=== PATIENT | male | born 1970 | race Asian ===

== ENCOUNTER 2017-08-31 20:41 | Emergency (ER) | payer OTHER ==
[~2017-08-31] VITALS: Ht 157.5 cm; Wt 92.1 kg
[2017-08-31] MEDS ORDERED: GABA300C2 PO (21:13)
[2017-08-31] MEDS ORDERED: OMEP20CA PO (21:13)
[2017-08-31] MEDS ORDERED: LIPITOR40 MG PO (21:14)
[2017-08-31] MEDS ORDERED: METF100038 OR (21:14)
[2017-08-31] MEDS ORDERED: NEURONTIN800 MG PO (21:14)
[2017-08-31] MEDS ORDERED: INSUINJ47 SC ×2 (21:15→21:16)
[2017-08-31 23:51] LABS: PLATELET COUNT 234 K/uL (142-355)
[2017-08-31 23:56] LABS: POTASSIUM 3.9 mmol/L (3.6-5.2); SODIUM 125 mmol/L (136-145)
[2017-09-01 00:48] VITALS: BP 136/72; TEMP 98.5
== END 2017-09-01 00:52 | disposition home or self-care (01) ==
LOC: ED 20:41
PROVIDERS: Specialist
DX: E11.43 Type 2 diabetes mellitus with diabetic autonomic (poly)neuropathy (principal); K31.84 Gastroparesis; R13.19 Other dysphagia
CPT/HCPCS: 36415; 80048; 82550; 82553; 84484; 85027; 93005; 96374; 99284; J1815

== ENCOUNTER 2017-09-19 21:08 | Observation (INO) | payer OTHER ==
[~2017-09-19] VITALS: Ht 157.5 cm; Wt 77.1 kg
[~2017-09-19 21:08] MED LIST: GABA300C2 PO; INSUINJ47 SC; LIPITOR40 MG PO; METF100038 OR; NEURONTIN800 MG PO; OMEP20CA PO
[2017-09-19] MEDS ORDERED: NITROSTAT0.4 MG SL (21:19)
[2017-09-19 21:21] VITALS: BP 120/85; TEMP 97.7
[2017-09-19 21:54] LABS: PLATELET COUNT 213 K/uL (142-355)
[2017-09-19 22:04] LABS: POTASSIUM 3.8 mmol/L (3.6-5.2)
[2017-09-19 22:22] LABS: PARTIAL THROMBOPLASTIN TIME 24.9 SECONDS (24.5-33.6)
[2017-09-19 23:39] VITALS: BP 142/87; TEMP 99.2; Ht 157.5 cm; Wt 77.1 kg
[2017-09-20] VITALS: BP 142/87; TEMP 99.2
[2017-09-20 04:00] VITALS: BP 168/82; TEMP 98.2
[2017-09-20 08:00] VITALS: BP 176/69; TEMP 98.3
[2017-09-20 12:00] VITALS: BP 117/75; TEMP 98
== END 2017-09-20 15:25 | disposition home or self-care (01) ==
LOC: ED 21:08 → MED/SURG 22:38
DX: R07.89 Other chest pain (principal); E11.9 Type 2 diabetes mellitus without complications; R13.19 Other dysphagia; R11.2 Nausea with vomiting, unspecified
CPT/HCPCS: 36415; 80053; 82150; 82550; 83690; 84484; 85027; 85610; 85730; 87081; 87804; 87880; 93005; 94760; 96365; 96366; 96372; 96374; 96375; 99220; 99284; G0378; J1650; J3490

== ENCOUNTER 2017-09-29 18:07 | Outpatient (CLI) | payer OTHER ==
[~2017-09-29 18:07] MED LIST changes: +NITROSTAT0.4 MG SL
[2017-09-29] MEDS ORDERED: METF100038 OR (19:17)
[2017-09-29] MEDS ORDERED: GABA300C2 PO ×2 (19:18→19:19)
[2017-09-29] MEDS ORDERED: INSUINJ47 SC ×2 (19:20→19:23)
== END 2017-09-29 18:10 | disposition short-term general hospital (02) ==
LOC: AMB 18:07
DX: R41.82 Altered mental status, unspecified (principal)
CPT/HCPCS: A0425; A0427

== ENCOUNTER 2017-09-29 18:14 | Emergency (ER) | payer OTHER ==
[~2017-09-29] VITALS: Ht 157.5 cm; Wt 77.1 kg
[2017-09-29 18:53] LABS: PLATELET COUNT 176 K/uL (142-355)
[2017-09-29 19:02] LABS: POTASSIUM 3.6 mmol/L (3.6-5.2)
[2017-09-29 19:10] LABS: PARTIAL THROMBOPLASTIN TIME 25.1 SECONDS (24.5-33.6)
[2017-09-29] MEDS ORDERED: METF100038 OR (19:17)
[2017-09-29] MEDS ORDERED: GABA300C2 PO ×2 (19:18→19:19)
[2017-09-29] MEDS ORDERED: INSUINJ47 SC ×2 (19:20→19:23)
[2017-09-29 21:52] VITALS: BP 113/86; TEMP 97.3
== END 2017-09-29 21:57 | disposition short-term general hospital (02) ==
LOC: ED 18:14
DX: I21.4 Non-ST elevation (NSTEMI) myocardial infarction (principal); E11.9 Type 2 diabetes mellitus without complications
CPT/HCPCS: 36415; 80053; 80307; 81000; 82550; 84484; 85027; 85610; 85730; 93005; 96372; 99284; J1650

== ENCOUNTER 2017-09-29 22:15 | Outpatient (CLI) | payer OTHER | END 2017-09-29 23:55 | disposition short-term general hospital (02) | LOC: AMB 22:15 | DX: I21.4 Non-ST elevation (NSTEMI) myocardial infarction (principal); E11.9 Type 2 diabetes mellitus without complications | CPT/HCPCS: A0425; A0427 ==

== ENCOUNTER 2017-11-19 16:18 | Emergency (ER) | payer OTHER ==
[~2017-11-19] VITALS: Ht 157.5 cm; Wt 80.3 kg
[2017-11-19 17:07] LABS: PLATELET COUNT 291 K/uL (142-355)
[2017-11-19 17:15] LABS: POTASSIUM 4.3 mmol/L (3.6-5.2)
[2017-11-19 20:50] VITALS: BP 158/78; TEMP 97.6
== END 2017-11-19 21:12 | disposition home or self-care (01) ==
LOC: ED 16:18
DX: K29.60 Other gastritis without bleeding (principal)
CPT/HCPCS: 80053; 82150; 83690; 83735; 85027; 96361; 96374; 99284; J2405; Q9963

== ENCOUNTER 2017-11-21 12:14 | Outpatient (CLI) | payer OTHER ==
[2017-11-21] MEDS ORDERED: METFORMIN ER1000 MG PO (18:20)
[2017-11-21] MEDS ORDERED: NOVOLOG MX SC ×2 (18:22→18:24)
[2017-11-21] MEDS ORDERED: ELIQUIS5 MG PO (18:25)
== END 2017-11-21 12:17 | disposition short-term general hospital (02) ==
LOC: AMB 12:14
DX: R55 Syncope and collapse (principal); E11.65 Type 2 diabetes mellitus with hyperglycemia
CPT/HCPCS: A0425; A0427

== ENCOUNTER 2017-11-21 12:17 | Inpatient (IN) | payer OTHER ==
[2017-11-21] VITALS (11 sets, daily range): BP systolic 104–158; BP diastolic 65–89; TEMP 97.3–98.6
[~2017-11-21] VITALS: Ht 157.5 cm; Wt 75.9 kg
[2017-11-21 13:15] LABS: PLATELET COUNT 238 K/uL (142-355)
[2017-11-21 13:20] LABS: POTASSIUM 4.9 mmol/L (3.6-5.2)
[2017-11-21] MEDS ORDERED: METFORMIN ER1000 MG PO (18:20)
[2017-11-21] MEDS ORDERED: NOVOLOG MX SC ×2 (18:22→18:24)
[2017-11-21] MEDS ORDERED: ELIQUIS5 MG PO (18:25)
[2017-11-22] VITALS: BP 130/70; BP 130/71; TEMP 98.3
[2017-11-22 03:02] VITALS: BP 144/69; TEMP 98.2; Ht 157.5 cm; Wt 75.9 kg
[2017-11-22 03:53] VITALS: BP 123/57; TEMP 98.9
[2017-11-22 08:00] VITALS: BP 115/63; TEMP 98.5
[2017-11-22 08:55] LABS: PLATELET COUNT 202 K/uL (142-355)
[2017-11-22 09:03] LABS: POTASSIUM 3.5 mmol/L (3.6-5.2)
[2017-11-22 12:00] VITALS: BP 139/80; TEMP 98.7
== END 2017-11-22 14:58 | disposition home or self-care (01) | DRG 640 ==
LOC: ED 12:17 → MED/SURG 15:00
PROVIDERS: Emergency Medicine; ADMIT Family Medicine
DX: E86.0 Dehydration (principal); E11.00 Type 2 diabetes mellitus with hyperosmolarity without nonketotic hyperglycemic-hyperosmolar coma (NKHHC); R11.2 Nausea with vomiting, unspecified; R55 Syncope and collapse; K21.9 Gastro-esophageal reflux disease without esophagitis; I10 Essential (primary) hypertension; D64.89 Other specified anemias; E88.09 Other disorders of plasma-protein metabolism, not elsewhere classified
CPT/HCPCS: 36415; 36591; 36600; 80053; 80307; 81000; 82607; 82728; 82805; 82948; 83540; 83550; 85027; 96361; 96365; 96372; 96374; 96376; 99284; J1815; J2405

== ENCOUNTER 2018-10-30 15:28 | Outpatient (CLI) | payer OTHER ==
[~2018-10-30 15:28] MED LIST changes: +ELIQUIS5 MG PO; +METFORMIN ER1000 MG PO; +NOVOLOG MX SC
== END 2018-10-30 23:19 | disposition home or self-care (01) ==
LOC: LABW 15:28
DX: B35.1 Tinea unguium (principal)
CPT/HCPCS: 36415; 84450; 84460

== ENCOUNTER 2018-12-01 15:09 | Outpatient (CLI) | payer OTHER | END 2018-12-01 15:11 | disposition short-term general hospital (02) | LOC: AMB 15:09 | DX: R55 Syncope and collapse (principal); R41.82 Altered mental status, unspecified | CPT/HCPCS: A0425; A0427 ==

== ENCOUNTER 2018-12-01 15:19 | Emergency (ER) | payer OTHER ==
[~2018-12-01] VITALS: Ht 157.5 cm; Wt 68.0 kg
[2018-12-01 15:55] LABS: PLATELET COUNT 155 K/uL (142-355)
[2018-12-01 16:11] LABS: POTASSIUM 3.8 mmol/L (3.6-5.2); SODIUM 129 mmol/L (136-145)
[2018-12-01 16:23] LABS: PARTIAL THROMBOPLASTIN TIME 23.2 SECONDS (24.5-33.6)
[2018-12-01 19:40] VITALS: BP 167/81; TEMP 98.2
== END 2018-12-01 19:40 | disposition home or self-care (01) ==
LOC: ED 15:19
PROVIDERS: Family Medicine
DX: R55 Syncope and collapse (principal); R51 Headache; E87.1 Hypo-osmolality and hyponatremia; E11.65 Type 2 diabetes mellitus with hyperglycemia; Z79.4 Long term (current) use of insulin; R07.89 Other chest pain; R00.1 Bradycardia, unspecified
CPT/HCPCS: 80053; 80307; 81000; 82550; 82962; 84484; 85027; 85610; 85730; 93005; 96360; 96372; 99284; J1815

== ENCOUNTER 2018-12-02 13:38 | Outpatient (CLI) | payer OTHER ==
[2018-12-02 14:04] LABS: PLATELET COUNT 173 K/uL (142-355)
[2018-12-02 14:14] LABS: POTASSIUM 3.6 mmol/L (3.6-5.2); SODIUM 135 mmol/L (136-145)
== END 2018-12-02 19:55 | disposition home or self-care (01) ==
LOC: LABW 13:38
PROVIDERS: Family Medicine
DX: E87.1 Hypo-osmolality and hyponatremia (principal); E13.65 Other specified diabetes mellitus with hyperglycemia; G40.409 Other generalized epilepsy and epileptic syndromes, not intractable, without status epilepticus
CPT/HCPCS: 36415; 80053; 82550; 83036; 84484; 85027

== ENCOUNTER 2019-01-15 11:13 | Outpatient (CLI) | payer OTHER | END 2019-01-15 23:46 | disposition home or self-care (01) | LOC: LABW 11:13 | DX: B35.1 Tinea unguium (principal) | CPT/HCPCS: 36415; 84450; 84460 ==

== ENCOUNTER 2020-02-27 14:02 | Emergency (ER) | payer OTHER ==
[~2020-02-27] VITALS: Ht 157.5 cm; Wt 68.0 kg
[2020-02-27 15:00] LABS: PLATELET COUNT 173 K/uL (142-355)
[2020-02-27 15:07] LABS: POTASSIUM 3.7 mmol/L (3.6-5.2); SODIUM 125 mmol/L (136-145)
[2020-02-27 15:24] LABS: PARTIAL THROMBOPLASTIN TIME 22.7 SECONDS (24.5-33.6)
[2020-02-27 21:35] VITALS: BP 157/63; TEMP 98.5
== END 2020-02-27 21:35 | disposition short-term general hospital (02) ==
LOC: ED 14:02
PROVIDERS: Family Medicine
DX: R00.1 Bradycardia, unspecified (principal); R11.2 Nausea with vomiting, unspecified; E87.1 Hypo-osmolality and hyponatremia; E11.65 Type 2 diabetes mellitus with hyperglycemia; Z79.4 Long term (current) use of insulin; Z79.84 Long term (current) use of oral hypoglycemic drugs
CPT/HCPCS: 36415; 80053; 82550; 82962; 83880; 84484; 85027; 85610; 85730; 93005; 96360; 96361; 96375; 96376; 99284; J1815; J2405

== ENCOUNTER 2020-03-28 12:10 | Emergency (ER) | payer OTHER ==
[~2020-03-28] VITALS: Ht 157.5 cm; Wt 68.0 kg
[2020-03-28 12:35] VITALS: TEMP 98.6
[2020-03-28 13:11] LABS: PLATELET COUNT 141 K/uL (142-355)
[2020-03-28 13:21] LABS: POTASSIUM 3.9 mmol/L (3.6-5.2)
[2020-03-28 17:20] VITALS: BP 189/82
== END 2020-03-28 17:20 | disposition home or self-care (01) ==
LOC: ED 12:10
PROVIDERS: Emergency Medicine Emergency Medical Services
DX: R11.2 Nausea with vomiting, unspecified (principal); I10 Essential (primary) hypertension; Z98.890 Other specified postprocedural states; F17.290 Nicotine dependence, other tobacco product, uncomplicated
CPT/HCPCS: 36415; 80053; 83690; 85027; 93005; 96360; 96372; 96375; 99284; J1815; J2270; J2405; J3490

== ENCOUNTER 2020-03-30 10:45 | Observation (INO) | payer OTHER ==
[~2020-03-30] VITALS: Ht 160 cm; Wt 57.8 kg
[2020-03-30 12:00] VITALS: BP 172/94; TEMP 98.6
[2020-03-30 12:22] LABS: PLATELET COUNT 147 K/uL (142-355)
[2020-03-30 12:36] VITALS: BP 172/94; TEMP 98.6; Ht 160 cm; Wt 57.8 kg
[2020-03-30 16:00] VITALS: BP 201/96; TEMP 98.2
[2020-03-30 20:00] VITALS: BP 92/57; TEMP 98.7
[2020-03-30] MEDS ORDERED: AMLODIPINE BESYLATE PO (20:22)
[2020-03-30] MEDS ORDERED: LANTUS100 UNIT/M SC (20:23)
[2020-03-30] MEDS ORDERED: ONDA4TAB3 PO (20:24)
[2020-03-30] MEDS ORDERED: COZAAR25 MG PO (20:24)
[2020-03-30] MEDS ORDERED: CARAFATE1 GM PO ×2 (20:25→20:26)
[2020-03-30] MEDS ORDERED: PANTOPRAZOLE 40MG TA PO (20:25)
[2020-03-30] MEDS ORDERED: ROWEEPRA500 MG PO (20:27)
[2020-03-31 00:15] VITALS: BP 107/61; TEMP 98.4
[2020-03-31 04:00] VITALS: BP 122/87; TEMP 97.8
[2020-03-31 05:01] LABS: PLATELET COUNT 132 K/uL (142-355)
[2020-03-31 05:42] LABS: POTASSIUM 3.7 mmol/L (3.6-5.2)
[2020-03-31 08:00] VITALS: BP 136/71; TEMP 98.3
[2020-03-31 12:00] VITALS: BP 137/74; TEMP 98.3
[2020-03-31 16:00] VITALS: BP 149/69; TEMP 98
== END 2020-03-31 20:19 | disposition home or self-care (01) ==
LOC: MED/SURG 10:45
PROVIDERS: ADMIT Family Medicine
DX: E13.10 Other specified diabetes mellitus with ketoacidosis without coma (principal); R11.2 Nausea with vomiting, unspecified; D50.9 Iron deficiency anemia, unspecified; E78.5 Hyperlipidemia, unspecified; I10 Essential (primary) hypertension; Z86.718 Personal history of other venous thrombosis and embolism; E83.51 Hypocalcemia; W08.XXXA Fall from other furniture, initial encounter; Y92.238 Other place in hospital as the place of occurrence of the external cause
CPT/HCPCS: 36415; 36600; 80053; 81000; 81002; 82805; 83735; 84100; 85027; 87635; 99220; G0378; G0379; J1815; J2550; J2765; J3475; U0003

== ENCOUNTER 2020-04-02 13:53 | Emergency (ER) | payer OTHER ==
[~2020-04-02] VITALS: Ht 160 cm; Wt 57.6 kg
[~2020-04-02 13:53] MED LIST changes: +AMLODIPINE BESYLATE PO; +CARAFATE1 GM PO; +COZAAR25 MG PO; +LANTUS100 UNIT/M SC; +ONDA4TAB3 PO; +PANTOPRAZOLE 40MG TA PO; +ROWEEPRA500 MG PO
[2020-04-02 14:44] VITALS: BP 155/94; TEMP 99.6
[2020-04-02 16:14] LABS: POTASSIUM 4.5 mmol/L (3.6-5.2)
[2020-04-02 16:15] LABS: PLATELET COUNT 158 K/uL (142-355)
== END 2020-04-02 20:01 | disposition home or self-care (01) ==
LOC: ED 13:53
PROVIDERS: Family Medicine
DX: K52.89 Other specified noninfective gastroenteritis and colitis (principal); E86.0 Dehydration; K59.09 Other constipation; R11.2 Nausea with vomiting, unspecified; Z98.890 Other specified postprocedural states
CPT/HCPCS: 80053; 82150; 83690; 85027; 96360; 96361; 96365; 96374; 99284; J1885; J3490

== ENCOUNTER 2020-06-11 13:48 | Outpatient (CLI) | payer OTHER | END 2020-06-11 20:08 | disposition home or self-care (01) | LOC: RESP 13:48 | PROVIDERS: ATTEND Specialist | DX: G40.909 Epilepsy, unspecified, not intractable, without status epilepticus (principal) ==

== ENCOUNTER 2020-09-26 13:05 | Emergency (ER) | payer OTHER ==
[~2020-09-26] VITALS: Ht 233.7 cm; Wt 65.8 kg
[2020-09-26 13:51] LABS: PLATELET COUNT 166 K/uL (142-355)
[2020-09-26 14:00] LABS: POTASSIUM 3.9 mmol/L (3.6-5.2)
[2020-09-26 14:13] LABS: PARTIAL THROMBOPLASTIN TIME 24.3 SECONDS (24.5-33.6)
[2020-09-26 16:30] VITALS: TEMP 98.4
[2020-09-26 17:15] VITALS: BP 167/77
== END 2020-09-26 17:20 | disposition short-term general hospital (02) ==
LOC: ED 13:05
PROVIDERS: Hospitalist
DX: K85.10 Biliary acute pancreatitis without necrosis or infection (principal); R11.2 Nausea with vomiting, unspecified; R10.84 Generalized abdominal pain; E11.9 Type 2 diabetes mellitus without complications; Z11.52 Encounter for screening for COVID-19
CPT/HCPCS: 80053; 80320; 81000; 81002; 82150; 83690; 84484; 85027; 85610; 85730; 87635; 93005; 96360; 96361; 96365; 96375; 99284; J1170; J1885; J2405; J2543; Q9963; U0003

== ENCOUNTER 2020-10-02 18:02 | Emergency (ER) | payer OTHER ==
[~2020-10-02] VITALS: Ht 233.7 cm; Wt 65.8 kg
[2020-10-02 18:32] LABS: PLATELET COUNT 188 K/uL (142-355)
[2020-10-02 18:54] LABS: POTASSIUM 3.8 mmol/L (3.6-5.2)
[2020-10-02 19:38] VITALS: BP 180/83; TEMP 98.8
== END 2020-10-02 19:38 | disposition home or self-care (01) ==
LOC: ED 18:02
PROVIDERS: Hospitalist
DX: E11.43 Type 2 diabetes mellitus with diabetic autonomic (poly)neuropathy (principal); K31.84 Gastroparesis; R11.2 Nausea with vomiting, unspecified; K20.80 Other esophagitis without bleeding
CPT/HCPCS: 36415; 80053; 81000; 82150; 83690; 85027; 96360; 96374; 96375; 99284; J2405; J3490

== ENCOUNTER 2020-10-06 15:51 | Emergency (ER) | payer OTHER ==
[~2020-10-06] VITALS: Ht 160 cm; Wt 65.8 kg
[2020-10-06 15:51] VITALS: TEMP 97.5
[2020-10-06 16:12] LABS: PLATELET COUNT 163 K/uL (142-355)
[2020-10-06 18:00] VITALS: BP 124/71
== END 2020-10-06 18:06 | disposition home or self-care (01) ==
LOC: ED 15:51
PROVIDERS: Family Medicine
DX: R55 Syncope and collapse (principal); M54.5 Low back pain; M79.18 Myalgia, other site; W18.39XA Other fall on same level, initial encounter; Y92.531 Health care provider office as the place of occurrence of the external cause
CPT/HCPCS: 80053; 80320; 85027; 93005; 96360; 96375; 99284; J1885

== ENCOUNTER 2021-02-14 18:21 | Observation (INO) | payer OTHER ==
[~2021-02-14] VITALS: Ht 157.5 cm; Wt 55.4 kg
[2021-02-14 18:28] VITALS: BP 115/100; TEMP 99
[2021-02-14 20:33] LABS: PLATELET COUNT 188 K/uL (142-355)
[2021-02-14 20:44] LABS: PARTIAL THROMBOPLASTIN TIME 24.7 SECONDS (24.5-33.6)
[2021-02-14 20:53] LABS: POTASSIUM 4.3 mmol/L (3.6-5.2)
[2021-02-15] VITALS (7 sets, daily range): BP systolic 102–145; BP diastolic 58–76; TEMP 97–98.3; Ht 157.5 cm; Wt 55.4 kg
[2021-02-15 09:25] LABS: PLATELET COUNT 162 K/uL (142-355)
[2021-02-15 17:34] LABS: PLATELET COUNT 166 K/uL (142-355)
[2021-02-16 00:20] VITALS: BP 124/76; TEMP 98.4
[2021-02-16 04:00] VITALS: BP 124/72; TEMP 98.2
[2021-02-16 06:10] LABS: PLATELET COUNT 136 K/uL (142-355)
[2021-02-16 08:00] VITALS: BP 149/72; TEMP 98.5
[2021-02-16 12:00] VITALS: BP 116/60; TEMP 98.4
== END 2021-02-16 11:45 | disposition home or self-care (01) ==
LOC: ED 18:21 → MED/SURG 02-15 17:20
PROVIDERS: Emergency Medicine Emergency Medical Services; Hospitalist; ADMIT Family Medicine; ATTEND Family Medicine
DX: K92.2 Gastrointestinal hemorrhage, unspecified (principal); E11.42 Type 2 diabetes mellitus with diabetic polyneuropathy; I73.89 Other specified peripheral vascular diseases
CPT/HCPCS: 36415; 80053; 82271; 83690; 83986; 85027; 85610; 85730; 87635; 96360; 96361; 96365; 96366; 96368; 99220; 99284; G0378; J2270; J2405; J3490; U0003

== ENCOUNTER 2021-04-24 13:04 | Emergency (ER) | payer OTHER ==
[~2021-04-24] VITALS: Ht 157.5 cm; Wt 55.3 kg
[2021-04-24 13:14] VITALS: TEMP 97.6
[2021-04-24 14:40] LABS: PLATELET COUNT 199 K/uL (142-355)
[2021-04-24 14:50] LABS: POTASSIUM 4.3 mmol/L (3.6-5.2)
[2021-04-24 17:40] LABS: POTASSIUM 3.9 mmol/L (3.6-5.2)
[2021-04-24 18:45] VITALS: BP 111/68
== END 2021-04-24 18:47 | disposition home or self-care (01) ==
LOC: ED 13:04
PROVIDERS: Emergency Medicine Emergency Medical Services
DX: K52.9 Noninfective gastroenteritis and colitis, unspecified (principal); E86.0 Dehydration
CPT/HCPCS: 80048; 80053; 81000; 83735; 85027; 96361; 96365; 96374; 96375; 99284; J1815; J2405; J3490

== ENCOUNTER 2021-05-01 07:43 | Emergency (ER) | payer OTHER ==
[~2021-05-01] VITALS: Ht 157.5 cm; Wt 67.6 kg
[2021-05-01 07:43] VITALS: TEMP 98.9
[2021-05-01 08:48] LABS: PLATELET COUNT 309 K/uL (142-355)
[2021-05-01 10:18] VITALS: BP 99/65
== END 2021-05-01 10:28 | disposition still patient (30) ==
LOC: ED 07:43
PROVIDERS: Emergency Medicine
DX: R10.13 Epigastric pain (principal); I25.119 Atherosclerotic heart disease of native coronary artery with unspecified angina pectoris; K85.90 Acute pancreatitis without necrosis or infection, unspecified; Z20.822 Contact with and (suspected) exposure to COVID-19
CPT/HCPCS: 36600; 80053; 80320; 82150; 82805; 83690; 84484; 85027; 87635; 93005; 96360; 96375; 99284; J1170; J1815; J2405; Q9963; U0003

== ENCOUNTER 2021-06-10 13:59 | Emergency (ER) | payer OTHER ==
[~2021-06-10] VITALS: Ht 157.5 cm; Wt 63.0 kg
[2021-06-10 14:53] LABS: PLATELET COUNT 220 K/uL (142-355)
[2021-06-10 15:03] LABS: POTASSIUM 4.2 mmol/L (3.6-5.2)
[2021-06-10 20:00] VITALS: BP 109/80; TEMP 98.1
== END 2021-06-10 20:00 | disposition home or self-care (01) ==
LOC: ED 13:59
PROVIDERS: Emergency Medicine
DX: K52.89 Other specified noninfective gastroenteritis and colitis (principal); K92.1 Melena; E86.0 Dehydration; R73.9 Hyperglycemia, unspecified
CPT/HCPCS: 80053; 82272; 85027; 96360; 96361; 99284

== ENCOUNTER 2021-06-14 19:34 | Emergency (ER) | payer OTHER ==
[~2021-06-14] VITALS: Ht 157.5 cm; Wt 62.1 kg
[2021-06-14 20:24] LABS: PLATELET COUNT 218 K/uL (142-355)
[2021-06-14 20:32] LABS: POTASSIUM 3.8 mmol/L (3.6-5.2)
[2021-06-14 22:05] VITALS: BP 164/95; TEMP 98.3
== END 2021-06-14 22:23 | disposition home or self-care (01) ==
LOC: ED 19:41
PROVIDERS: Family Medicine
DX: E86.0 Dehydration (principal); E87.1 Hypo-osmolality and hyponatremia; R56.9 Unspecified convulsions; W18.39XA Other fall on same level, initial encounter; Y92.89 Other specified places as the place of occurrence of the external cause
CPT/HCPCS: 36415; 80053; 80307; 81000; 84484; 85027; 93005; 96360; 96375; 99284; J2405

== ENCOUNTER 2021-09-12 09:06 | Emergency (ER) | payer OTHER ==
[~2021-09-12] VITALS: Ht 157.5 cm; Wt 59.0 kg
[2021-09-12 09:06] VITALS: TEMP 98
[2021-09-12 09:55] LABS: PLATELET COUNT 197 K/uL (142-355)
[2021-09-12 10:08] LABS: POTASSIUM 4.5 mmol/L (3.6-5.2)
[2021-09-12 15:00] VITALS: BP 169/81
== END 2021-09-12 15:27 | disposition home or self-care (01) ==
LOC: ED 09:06
PROVIDERS: Emergency Medicine Emergency Medical Services
DX: K52.89 Other specified noninfective gastroenteritis and colitis (principal); E86.0 Dehydration
CPT/HCPCS: 36415; 80053; 81000; 82150; 82948; 83690; 85027; 96360; 96375; 99284; J1815; J2405; J3490

== ENCOUNTER 2021-09-23 11:36 | Emergency (ER) | payer OTHER ==
[~2021-09-23] VITALS: Ht 157.5 cm; Wt 59.0 kg
[2021-09-23 11:39] VITALS: TEMP 97.8
[2021-09-23 12:11] LABS: PLATELET COUNT 412 K/uL (142-355)
[2021-09-23 12:45] LABS: POTASSIUM 4.4 mmol/L (3.6-5.2)
[2021-09-23 14:57] VITALS: BP 161/71
== END 2021-09-23 15:01 | disposition home or self-care (01) ==
LOC: ED 11:36
PROVIDERS: Emergency Medicine
DX: K20.80 Other esophagitis without bleeding (principal); R10.13 Epigastric pain
CPT/HCPCS: 80053; 81000; 84484; 85027; 85610; 93005; 96360; 96374; 96375; 99284; J2270; J2405; J3490; Q9963

== ENCOUNTER 2021-11-04 09:00 | Emergency (ER) | payer OTHER ==
[~2021-11-04] VITALS: Ht 157.5 cm; Wt 59.0 kg
[2021-11-04 09:02] VITALS: TEMP 98.9
[2021-11-04] MEDS ORDERED: PANTOPRAZOLE 40MG TA PO (13:19)
[2021-11-04 13:33] VITALS: BP 142/74
== END 2021-11-04 13:35 | disposition home or self-care (01) ==
LOC: ED 09:00
DX: R13.19 Other dysphagia (principal)
CPT/HCPCS: 96372; 96374; 99284; J1610; J2405; J3490

== ENCOUNTER 2021-11-15 09:40 | Emergency (ER) | payer OTHER | END 2021-11-15 13:08 | disposition home or self-care (01) | LOC: ED 09:40 | DX: R13.19 Other dysphagia (principal); F41.8 Other specified anxiety disorders | CPT/HCPCS: 99282 ==

== ENCOUNTER 2021-11-28 01:10 | Emergency (ER) | payer OTHER ==
[~2021-11-28] VITALS: Ht 175.3 cm; Wt 54.4 kg
[2021-11-28 02:45] LABS: POTASSIUM 3.6 mmol/L (3.6-5.2)
[2021-11-28 02:55] LABS: PARTIAL THROMBOPLASTIN TIME 22.5 SECONDS (24.5-33.6)
[2021-11-28 03:18] LABS: PLATELET COUNT 196 K/uL (142-355)
[2021-11-28 05:10] VITALS: BP 136/72; TEMP 98.7
== END 2021-11-28 05:10 | disposition home or self-care (01) ==
LOC: ED 01:10
PROVIDERS: Hospitalist
DX: E11.43 Type 2 diabetes mellitus with diabetic autonomic (poly)neuropathy (principal); K31.84 Gastroparesis; Z79.4 Long term (current) use of insulin; R11.2 Nausea with vomiting, unspecified
CPT/HCPCS: 36415; 80053; 80320; 81002; 82550; 83690; 83880; 84484; 85008; 85027; 85610; 85730; 93005; 96360; 96374; 96375; 99284; J0360; J2405; J3490

== ENCOUNTER 2021-11-30 16:46 | Observation (INO) | payer OTHER ==
[~2021-11-30] VITALS: Ht 157.5 cm; Wt 51.3 kg
[2021-11-30] VITALS (8 sets, daily range): BP systolic 129–218; BP diastolic 65–98; TEMP 97.7–98.8; Ht 157.5 cm; Wt 51.3 kg
[2021-11-30 17:31] LABS: PLATELET COUNT 174 K/uL (142-355)
[2021-11-30 17:45] LABS: POTASSIUM 4.4 mmol/L (3.6-5.2)
[2021-12-01 03:43] VITALS: BP 108/49; TEMP 98.1
[2021-12-01 08:00] VITALS: BP 131/73; TEMP 97.9
[2021-12-01 08:59] VITALS: BP 131/7; TEMP 97.9
[2021-12-01 09:20] LABS: POTASSIUM 4.2 mmol/L (3.6-5.2)
[2021-12-01 09:40] LABS: PLATELET COUNT 178 K/uL (142-355)
[2021-12-01 12:00] VITALS: BP 170/85; TEMP 98.8
[2021-12-01] MEDS ORDERED: PANTOPRAZOLE SO40 M1 PO (12:59)
[2021-12-01] MEDS ORDERED: ONDANSETRON HYDR4 MG PO (12:59)
[2021-12-01] MEDS ORDERED: APIX1TAB PO (13:00)
[2021-12-01] MEDS ORDERED: OMEPRAZOLE DR20 MG PO (13:01)
[2021-12-01] MEDS ORDERED: METFORMIN HYD1000 MG PO (13:11)
[2021-12-01] MEDS ORDERED: LISI10TA11 PO (13:17)
[2021-12-01] MEDS ORDERED: GRALISE600 MG PO (13:19)
[2021-12-01] MEDS ORDERED: TRESIBA FL100 UNIT/M SC (13:24)
== END 2021-12-01 13:50 | disposition home or self-care (01) ==
LOC: ED 16:46 → MED/SURG 18:55
PROVIDERS: ADMIT Emergency Medicine; ATTEND Internal Medicine
DX: R07.89 Other chest pain (principal); E11.43 Type 2 diabetes mellitus with diabetic autonomic (poly)neuropathy; K31.84 Gastroparesis; E11.65 Type 2 diabetes mellitus with hyperglycemia; Z20.822 Contact with and (suspected) exposure to COVID-19; G40.802 Other epilepsy, not intractable, without status epilepticus; I10 Essential (primary) hypertension; Z72.0 Tobacco use; F14.10 Cocaine abuse, uncomplicated; E11.42 Type 2 diabetes mellitus with diabetic polyneuropathy; E78.49 Other hyperlipidemia
CPT/HCPCS: 36415; 80048; 80053; 80307; 81000; 82550; 82948; 83690; 83735; 84484; 85027; 85610; 87086; 87088; 87635; 93005; 96360; 96361; 96372; 96374; 96375; 99220; 99284; G0378; J1650; J1815; J2270; J2405; J2765; J3490; U0003

== ENCOUNTER 2021-12-14 18:45 | Emergency (ER) | payer OTHER ==
[~2021-12-14] VITALS: Ht 157.5 cm; Wt 59.0 kg
[2021-12-14 18:45] VITALS: TEMP 98
[~2021-12-14 18:45] MED LIST changes: +APIX1TAB PO; +GRALISE600 MG PO; +LISI10TA11 PO; +METFORMIN HYD1000 MG PO; +OMEPRAZOLE DR20 MG PO; +ONDANSETRON HYDR4 MG PO; +PANTOPRAZOLE SO40 M1 PO; +TRESIBA FL100 UNIT/M SC
[2021-12-14 19:30] VITALS: BP 120/84
[2021-12-14 19:39] LABS: PLATELET COUNT 232 K/uL (142-355)
[2021-12-14 19:57] LABS: PARTIAL THROMBOPLASTIN TIME 26.7 SECONDS (24.5-33.6)
== END 2021-12-14 20:30 | disposition home or self-care (01) ==
LOC: ED 18:45
PROVIDERS: Hospitalist
DX: E86.0 Dehydration (principal); E11.43 Type 2 diabetes mellitus with diabetic autonomic (poly)neuropathy; K31.84 Gastroparesis; Z79.4 Long term (current) use of insulin; Z79.84 Long term (current) use of oral hypoglycemic drugs; R11.2 Nausea with vomiting, unspecified; R07.89 Other chest pain
CPT/HCPCS: 80053; 80320; 81000; 82550; 83880; 84484; 85027; 85610; 85730; 87086; 87088; 93005; 96360; 96374; 96375; 99284; J1815; J2405

== ENCOUNTER 2021-12-18 20:30 | Emergency (ER) | payer OTHER ==
[~2021-12-18] VITALS: Ht 157.5 cm; Wt 56.7 kg
[2021-12-18 21:34] LABS: PLATELET COUNT 284 K/uL (142-355)
[2021-12-18 21:51] LABS: POTASSIUM 4.8 mmol/L (3.6-5.2)
[2021-12-18 23:50] VITALS: BP 118/75; TEMP 98.3
== END 2021-12-18 23:45 | disposition home or self-care (01) ==
LOC: ED 20:30
PROVIDERS: Hospitalist
DX: K59.09 Other constipation (principal); E86.0 Dehydration
CPT/HCPCS: 36415; 80053; 83690; 84484; 85008; 85027; 93005; 96360; 96374; 99284; J2405

== ENCOUNTER 2022-01-05 11:10 | Emergency (ER) | payer OTHER ==
[~2022-01-05] VITALS: Ht 157.5 cm; Wt 56.7 kg
[2022-01-05 11:26] VITALS: TEMP 97.3
[2022-01-05 12:03] LABS: PLATELET COUNT 353 K/uL (142-355)
[2022-01-05 12:08] LABS: POTASSIUM 4.1 mmol/L (3.6-5.2)
[2022-01-05 12:13] LABS: PARTIAL THROMBOPLASTIN TIME 26.6 SECONDS (24.5-33.6)
[2022-01-05] MEDS ORDERED: PANTOPRAZOLE 40MG TA PO (12:30)
[2022-01-05] MEDS ORDERED: ONDA4TAB3 PO (12:30)
[2022-01-05 14:10] VITALS: BP 115/85
== END 2022-01-05 14:10 | disposition home or self-care (01) ==
LOC: ED 11:10
PROVIDERS: Emergency Medicine
DX: K22.2 Esophageal obstruction (principal); E11.65 Type 2 diabetes mellitus with hyperglycemia; Z79.4 Long term (current) use of insulin; K92.0 Hematemesis
CPT/HCPCS: 80053; 80307; 80320; 82150; 82271; 83690; 83986; 84484; 85027; 85610; 85730; 93005; 96360; 96375; 96376; 99284; J1815; J2405; J3490

== ENCOUNTER 2022-04-10 15:20 | Emergency (ER) | payer OTHER ==
[~2022-04-10] VITALS: Ht 157.5 cm; Wt 59.9 kg
[2022-04-10 15:20] VITALS: TEMP 98.1
[2022-04-10 16:14] LABS: PLATELET COUNT 210 K/uL (142-355)
[2022-04-10 16:20] LABS: POTASSIUM 3.8 mmol/L (3.6-5.2)
[2022-04-10 19:04] VITALS: BP 121/76
== END 2022-04-10 19:05 | disposition home or self-care (01) ==
LOC: ED 15:20
PROVIDERS: Emergency Medicine Emergency Medical Services
DX: R11.2 Nausea with vomiting, unspecified (principal); R19.7 Diarrhea, unspecified; K80.20 Calculus of gallbladder without cholecystitis without obstruction; Z98.890 Other specified postprocedural states
CPT/HCPCS: 80053; 82150; 83690; 85027; 96360; 96361; 96374; 96375; 99283; 99284; J0360; J2270; J2405; J3490

== ENCOUNTER 2022-06-02 16:00 | Outpatient (CLI) | payer OTHER ==
[2022-06-02 16:50] LABS: PLATELET COUNT 222 K/uL (142-355)
== END 2022-06-02 19:17 | disposition home or self-care (01) ==
LOC: LABW 16:00
PROVIDERS: ATTEND Internal Medicine
DX: E11.22 Type 2 diabetes mellitus with diabetic chronic kidney disease (principal); N18.31 Chronic kidney disease, stage 3a; R53.83 Other fatigue
CPT/HCPCS: 36415; 82330; 82607; 82728; 82746; 83036; 83540; 83550; 83735; 84100; 84439; 84443; 85027; 86038; 86140

== ENCOUNTER 2022-06-19 17:08 | Emergency (ER) | payer OTHER ==
[~2022-06-19] VITALS: Ht 157.5 cm; Wt 63.0 kg
[2022-06-19 17:10] VITALS: BP 158/89; TEMP 97.9
== END 2022-06-19 18:06 | disposition home or self-care (01) ==
LOC: ED 17:08
DX: B86 Scabies (principal)
CPT/HCPCS: 99282

== ENCOUNTER 2022-06-20 04:55 | Emergency (ER) | payer OTHER ==
[~2022-06-20] VITALS: Ht 157.5 cm; Wt 63.0 kg
[2022-06-20 05:40] VITALS: BP 158/89; TEMP 97.8
== END 2022-06-20 05:45 | disposition home or self-care (01) ==
LOC: ED 04:55
DX: B86 Scabies (principal)
CPT/HCPCS: 99283

== ENCOUNTER 2022-08-11 12:31 | Emergency (ER) | payer BC, OTHER ==
[~2022-08-11] VITALS: Ht 157.5 cm; Wt 54.4 kg
[2022-08-11 12:31] VITALS: TEMP 98
[2022-08-11 13:23] LABS: PLATELET COUNT 253 K/uL (142-355)
[2022-08-11 19:12] VITALS: BP 168/95
== END 2022-08-11 19:21 | disposition home or self-care (01) ==
LOC: ED 12:31
PROVIDERS: Emergency Medicine
DX: R07.89 Other chest pain (principal)
CPT/HCPCS: 80053; 83690; 84484; 85027; 85610; 85730; 93005; 96374; 96375; 99284; J2270; J2405; J3490; Q9963

== ENCOUNTER 2022-09-07 20:59 | Emergency (ER) | payer OTHER ==
[2022-09-08 02:57] LABS: PLATELET COUNT 240 K/uL (142-355)
[2022-09-08 03:04] LABS: POTASSIUM 4.2 mmol/L (3.6-5.2)
== END 2022-09-07 23:45 | disposition home or self-care (01) ==
LOC: ED 20:59
PROVIDERS: Emergency Medicine
DX: R10.13 Epigastric pain (principal); R11.0 Nausea; E11.65 Type 2 diabetes mellitus with hyperglycemia; Z79.4 Long term (current) use of insulin; Z79.84 Long term (current) use of oral hypoglycemic drugs; Z51.81 Encounter for therapeutic drug level monitoring; R07.89 Other chest pain; F41.8 Other specified anxiety disorders; R82.5 Elevated urine levels of drugs, medicaments and biological substances; R06.02 Shortness of breath
CPT/HCPCS: 36415; 80053; 80307; 83880; 84484; 85027; 85379; 93005; 96374; 96375; 99284

== ENCOUNTER 2022-11-15 18:50 | Emergency (ER) | payer OTHER ==
[~2022-11-15] VITALS: Ht 157.5 cm; Wt 59.0 kg
[2022-11-15 18:50] VITALS: BP 114/56; TEMP 97.9
[2022-11-15 19:38] LABS: POTASSIUM 4.4 mmol/L (3.6-5.2)
== END 2022-11-15 20:47 | disposition home or self-care (01) ==
LOC: ED 18:50
PROVIDERS: Internal Medicine
DX: E16.2 Hypoglycemia, unspecified (principal)
CPT/HCPCS: 80048; 96374; 96375; 99284; J7060